=== PATIENT | female | born 2000 | race Two or more races ===

== ENCOUNTER → 2019-02-23 | Outpatient (CLI) | payer OTHER | END | disposition home or self-care (01) | LOC: PRENATAL 14:00 | DX: O26.851 Spotting complicating pregnancy, first trimester (principal); O36.80X1 Pregnancy with inconclusive fetal viability, fetus 1 ==

== ENCOUNTER 2019-09-21 11:22 | Inpatient (IN) | payer OTHER ==
[~2019-09-21] VITALS: Ht 152.4 cm; Wt 62.6 kg
[2019-10-11] MEDS ORDERED: PRENATAL PLUS1 EAC1 PO (06:42)
== END 2019-10-13 09:05 | disposition home or self-care (01) | DRG 807 ==
LOC: LDR 10-11 05:59 → OB/GYN 10-11 17:32
PROVIDERS: ADMIT Specialist; ATTEND Specialist
PROC: 10E0XZZ Delivery of Products of Conception, External Approach (ICD-10-PCS; principal; 2019-10-11)
PROC: 0W8NXZZ Division of Female Perineum, External Approach (ICD-10-PCS; 2019-10-11)
PROC: 4A0HXFZ Measurement of Products of Conception, Cardiac Rhythm, External Approach (ICD-10-PCS; 2019-10-11)
DX: O80 Encounter for full-term uncomplicated delivery (principal); Z37.0 Single live birth; Z3A.39 39 weeks gestation of pregnancy